=== PATIENT | male | born 1955 | race Two or more races ===

== ENCOUNTER 2018-07-29 03:39 | Emergency (ER) | payer OTHER ==
[~2018-07-29] VITALS: Ht 177.8 cm; Wt 88.5 kg
[2018-07-29] MEDS ORDERED: CARDIZEM120 MG PO (04:16)
[2018-07-29] MEDS ORDERED: ZOCOR20 MG (04:16)
[2018-07-29] MEDS ORDERED: COZAAR50 MG PO (04:16)
[2018-07-29] MEDS ORDERED: EPIPEN0.3 MG/0.1 IJ (06:12)
== END 2018-07-29 06:18 | disposition home or self-care (01) ==
LOC: ER 03:39
DX: T78.3XXA Angioneurotic edema, initial encounter (principal)